=== PATIENT | male | born 1960 | race Caucasian/White ===

== ENCOUNTER 2016-05-10 12:43 | Day surgery (SDC) | payer BC ==
[~2016-05-10] VITALS: Ht 177.8 cm; Wt 127.3 kg
[~2016-05-10 12:43] MED LIST: ATIVAN1 MG PO; CELEXA40 MG PO; CIPRO500 MG PO; LEVAQUIN750 MG PO; NORCO 5/325 TAB1 TA1 PO; NORVASC10 MG PO; PLAVIX75 MG PO; PRINIVIL20 MG PO; ROBAXIN-750750 MG; XARELTO10 MG PO
[2016-05-10 13:32] LABS: HEMATOCRIT 52.5 % (42.0-54.0); HEMOGLOBIN 18.4 g/dL (13.5-17.5); MCH 31.6 pg (26.0-34.0); MCV 90.1 fL (80.0-100.0); MEAN PLATELET VOLUME 11.2 fL (7.4-10.4); RBC 5.83 10x6/uL (4.20-6.10); RDW 12.8 % (11.5-14.5); WBC 12.6 10x3/uL (4.8-10.8)
[2016-05-10] MEDS ORDERED: GLUCOPHAGE1000 MG PO (13:36)
[2016-05-10 13:37] VITALS: BP 146/79; Ht 177.8 cm; Wt 127.3 kg
--- NOTE | 2016-05-10 15:21 | NUR ---
1510 UP TO THE BR WITH ASSISTANCE VOIDED AND PASSED AIR.
--- NOTE | 2016-05-10 15:21 | NUR ---
1500 BACK FROM GI LAB. RESP EVEN AND NONLABORED. PASSED AIR. SAT 95%. PASSED AIR.
--- NOTE | 2016-05-10 15:25 | NUR ---
1515 CALLED LAB TO ADD CEA ALREADY HAD BLOOD DRAWN.
--- NOTE | 2016-05-10 17:44 | NUR ---
1545 VERIFIED WITH LAMAR IN LAB, LAB SENT OUT OFF LAB ALREADY GOTTEN. PASSED AIR DR YAÑEZ ALREADY ROUNDED.
--- NOTE | 2016-05-10 17:46 | NUR ---
1610 TO HOME VIA W/C WITH FIANCE DRIVING.
--- NOTE | 2016-05-10 17:46 | NUR ---
1600 IV DCD CATHETER INTACT WENT OVER DISCHARGE INSTRUCTIONS, AND VERBALLY UNDERSTANDS.
--- NOTE | 2016-05-14 17:02 | OP ---
PATIENT NAME: GABRIELA AGUIRRE MEDICAL RECORD: [id number] :64 LOCATION:D.OPS ADMISSION DATE: SURGEON: DANN YAÑEZ MD DATE OF OPERATION: 05/10/2016 REFERRING PHYSICIAN: Dayami Newman MD. INDICATIONS: Mr. Aguirre is a pleasant 56-year-old gentleman, who had a hospitalization for right lower quadrant pain, 01/03/2016. CT scan on 01/04/2016 showed bilateral nonobstructive renal calculi, renal cyst, no acute intra-abdominal findings. Stool studies were negative. He was treated with antibiotic therapy and then discharged. He has had no recurrence of his abdominal pain nor has he had any nausea, vomiting, melena or hematochezia. Labs from 01/05/2016 showed an elevated CEA level at 6.9, a CRP of 1.1. Liver function tests and CBC were unremarkable. He had colon surgery in 2012 secondary to perforated diverticulum. He presents for outpatient colonoscopy. PREMEDICATIONS: Total IV anesthesia (factor V Leiden), propofol 350 mg. INSTRUMENT: Olympus video colonoscope. PROCEDURE AND FINDINGS: After receiving informed consent, Mr. Aguirre was placed in left lateral decubitus position and sedated as per anesthesia. After achieving an adequate level of sedation, digital rectal exam was performed that showed no external hemorrhoidal tags, fissures or fistulas. Normal sphincter tone. No palpable rectal masses. The prostate was slightly enlarged, firm without palpable nodules. Colonoscope was introduced per rectally and advanced to the cecal small bowel anastomosis. Surgical changes were consistent with a partial right hemicolectomy. The appendiceal orifice was identified. As the colonoscope was withdrawn, careful inspection was made of the michel of the colon. Overall mucosa had normal vascular and fold pattern. In the proximal transverse colon, was a 0.75 cm sessile polyp removed with hot biopsy forcep technique. In the mid transverse colon was at 1.5-2 cm sessile polyp removed with hot biopsy forceps technique. Multiple diverticula were seen scattered throughout the sigmoid colon. In the distal rectum, there were 2 polyps measuring 0.3 cm in size, sessile, removed with hot biopsy forceps technique and on retroflexion, mild to moderate internal hemorrhoids were noted. A fair to good prep was present. Withdrawal time was 13 minutes. Mr. Tunnicliff tolerated the procedure well, no immediate complications. ASSESSMENT: 1. Status post right hemicolectomy for perforated diverticulum in 2013 with identification of small bowel, cecal anastomosis. 2. Paroxysmal transverse colon polyp, status post polypectomy. 3. Mid transverse colon polyp, status post polypectomy. 4. Distal rectal polyps times 2, status post polypectomy. 5. Moderate sigmoid diverticulosis coli. 6. Internal hemorrhoids. RECOMMENDATIONS: 1. Follow up histopathology. 2. Avoid aspirin, nonsteroidal anti-inflammatory drugs and RANDHAWA-2 inhibitors for 14 days post polypectomy. 3. Resume Xarelto tomorrow. 4. Surveillance colonoscopy pending nature of polyp histopathology. OPERATIVE REPORT [id number] GABRIELA AGUIRRE 5. Repeat CEA level. TRANSINT:[id number] Voice Confirmation ID: [id number] DOCUMENT ID: [id number] DANN YAÑEZ MD at 1702 CC: DAYAMI NEWMAN MD [id number] DICTATION DATE: 05/10/16 1457 SLAG EXPANDER: 05/10/161926 [facility] 05/10/16 [facility] [address] [place] [address]
== END 2016-05-10 16:10 | disposition home or self-care (01) ==
LOC: D.OPS 12:43
PROVIDERS: Anesthesiology
DX: K63.89 Other specified diseases of intestine (principal); Z90.49 Acquired absence of other specified parts of digestive tract; K63.5 Polyp of colon; K62.1 Rectal polyp; K64.8 Other hemorrhoids; K57.30 Diverticulosis of large intestine without perforation or abscess without bleeding

== ENCOUNTER → 2016-05-17 15:56 | Outpatient (CLI) | payer BC ==
[2016-05-10 13:37] VITALS: BMI 40.2
[~2016-05-17 15:56] MED LIST changes: +FLAGYL500 MG PO; +GLUCOPHAGE1000 MG PO; +ZANAFLEX4 MG PO
== END | disposition home or self-care (01) ==
LOC: D.CT 15:56
DX: R97.0 Elevated carcinoembryonic antigen [CEA] (principal); F17.200 Nicotine dependence, unspecified, uncomplicated

== ENCOUNTER 2016-06-11 14:47 | Observation (INO) | payer BC ==
[~2016-06-11] VITALS: Ht 177.8 cm; Wt 121.6 kg
[~2016-06-11 14:47] MED LIST changes: -FLAGYL500 MG PO; -ZANAFLEX4 MG PO
[2016-06-11] MEDS ORDERED: ZANAFLEX4 MG PO (15:26)
[2016-06-11 15:35] VITALS: BP 157/80; Ht 177.8 cm; Wt 121.6 kg
--- NOTE | 2016-06-11 16:00 | NUR ---
PATIENT ADMITTED FROM CLINIC. ADMISSION ASSESSMENT, HISTORY AND MED REC DONE. NPO FOR CT SCAN. IV STARTED ON 1ST ATTEMPT WITH 20 GA 1 INCH IN R HAND. PATIENT IS VERY HARD OF HEARING. MONITOR SHOWS SR @ 87. WILL CONTINUE TO MONITOR.
--- NOTE | 2016-06-11 16:18 | NUR ---
CONTINUING CARE OF PT. PT SITTING UP IN BED DENIES NEEDS WILL CONT TO MONITOR.
[2016-06-11 16:45] LABS: CREATININE - SERUM 0.6 mg/dL (0.6-1.3)
--- NOTE | 2016-06-11 17:18 | NUR ---
INITIATED DILAUDID PLATFORM LOADER. PRIMED TUBING WITH 1.8 CC MEDICATION. PT INSTRUCTED ON HOW TO USE PLATFORM LOADER PUMP. WORKING PROPERLY. .2MG EVERY 20 MINUTES WITH A 4MG 4 HOUR LOCKOUT PER EMAR.
--- NOTE | 2016-06-11 18:03 | NUR ---
PT BACK FROM CT DENIES NEEDS
[2016-06-11 18:12] VITALS: BP 157/80
--- NOTE | 2016-06-11 19:02 | NUR ---
PT SITTING UP IN BED GIVEN MOUTH SWABS DENIES OTHER NEEDS
--- NOTE | 2016-06-11 19:38 | NUR ---
ASSESSMENT COMPLETE, A&O, IV TO RIGHT HAND WITH NS INFUSING AT 100 CC/HR AND DILAUDID FACILITY SECURITY OFFICER IN USE FOR PAIN CONTROL. ASSISTED PT WITH PUTTING SHORTS ON, NO OTHER NEEDS AT THIS TIME, WILL CONT TO MONITOR.
[2016-06-11 20:00] VITALS: BP 101/66
--- NOTE | 2016-06-11 20:10 | NUR ---
UP WALKING AROUND NURSES UNIT, GAIT STEADY.
--- NOTE | 2016-06-11 22:50 | NUR ---
ANSWERED CL, PT STATES THAT HE IS HAVING A HARD TIME SLEEPING AND WANTS TO GO FOR A WALK, DISCONNECTED IV. PT AMBULATING IN [place], GAIT STEADY.
[2016-06-12] VITALS: BP 100/52
--- NOTE | 2016-06-12 00:39 | NUR ---
MONITORING ENGINEER AT BEDSIDE FOR VS, NEEDS ADDRESSED. CALL LIGHT IN REACH. WILL CONT TO MONITOR.
--- NOTE | 2016-06-12 02:35 | NUR ---
RESTING WITH EYES CLOSED, RESPERATIONS EVEN, NO S/S DISTRESS NOTED.
[2016-06-12 04:00] VITALS: BP 154/79
--- NOTE | 2016-06-12 05:00 | NUR ---
PT WENT FOR A WALK DOWN THE [place], UPON RETURNING TO HIS ROOM PT STOPPED AT NURSES STATION AND STATED THAT HE HAD THROWN UP OUT SIDE. PT ASKING FOR CUP OF COFFEE TO GET TASTE OUT OF HIS MOUTH, INFORMED PT THAT HE IS NPO AND I CANT GIVE HIM ANY THING TO DRINK UNTIL WE TALK THE DOCTOR.
--- NOTE | 2016-06-12 06:30 | NUR ---
PT AMBULATING IN [place], STOPS AT NURSES STATION AND STATES THAT HE HAD JUST THROW UP AGAIN. INOFRMED PT THAT HE PROBABLY NEEDS TO STAY IN HIS ROOM SINCE THIS IS THE SECOND TIME THAT HE HAS GONE OUT SIDE AND THROWN UP.
--- NOTE | 2016-06-12 07:50 | NUR ---
0730-NPO STATUS, PATIENT WANTING TO SLEEP, PLACED HIMSELF ON HIS OWN CPAP. IV OF NS INFUSING TO RIGHT HAND ALONG WITH REPACKER DILAUDID WITHOUT PROBLEMS. ON HEART MONITOR SHOWING SR, HR 60. WILL CONTINUE TO MONITOR.
--- NOTE | 2016-06-12 08:23 | CN ---
PATIENT NAME:GABRIELA AGUIRRE MEDICAL RECORD: [id number] : 64 LOCATION:D. D.2128 ADMIT DATE: 06/11/16 ACCOUNT: [id number] CONSULTING PHYSICIAN: JOCY BENNETT MD REFERRING PHYSICIAN: IAN NEWMAN MD DATE OF CONSULTATION: 06/11/2016 Surgical Consultation CONSULTING PHYSICIAN: Jocy Bennett MD (JJ) CHIEF COMPLAINT: Right lower quadrant pain. HISTORY OF PRESENT ILLNESS: Mr. Aguirre is a 56-year-old male who was admitted to the hospital with recurrent right lower quadrant pain that started several days ago. He was admitted approximately 4-5 months ago for similar symptoms ____ any significant pathology. He was scheduled to have an outpatient colonoscopy after that admission. He has not had a colonoscopy at this time. His last colonoscopy was greater than 10 years ago. The pain is sharp and stabbing in nature. It sort of migrates to the right lower quadrant. He has a history of a previous right hemicolectomy. He was tolerating a diet at home. He is having regular bowel movements. No melena or hematochezia. No fever or chills. No dysuria. PAST MEDICAL HISTORY: Deafness, requiring hearing aids; hypertension. PREVIOUS OPERATIONS: Cholecystectomy, appendectomy, varicose vein surgery, right hemicolectomy. MEDICATIONS: Lisinopril, amlodipine, lorazepam, citalopram, [place], Xarelto. FAMILY HISTORY: Cardiovascular disease and cancer in his parents. SOCIAL HISTORY: He is a current everyday smoker. REVIEW OF SYSTEMS: A 12-point review of systems was obtained, pertinent positive and negative as per the HPI. PHYSICAL EXAMINATION: VITAL SIGNS: Temperature 98.8, pulse 94, respirations 18, blood pressure 157/80, satting 95% on room air. GENERAL: Well-developed, well-nourished, obese male in mild distress. PSYCHIATRIC: He is alert and oriented times 3. EYES: Extraocular muscles are intact. EARS, NOSE AND THROAT: He has normal dentition. He does have tympanic devices in place in left ear. CARDIOVASCULAR: Normal sinus rhythm. PULMONARY: He has decreased breath sounds bilaterally ____ wheezing. ABDOMEN: Soft. He has got voluntary guarding in the right lower quadrant. No rebound tenderness. No masses. No hernia defects. No skin changes. He is moderately tender to palpation in the right lower quadrant. SKIN: Warm and dry with normal turgor. EXTREMITIES: He is neurovascularly intact. No peripheral edema. NEUROLOGIC: His GCS is 15, no focal deficits. CONSULT REPORT [id number] GABRIELA AGUIRRE LABORATORY DATA: Show a normal BUN and creatinine. IMAGING: CT abdomen and pelvis was reviewed as well as his previous CT scan done several months ago, which again shows no identifiable pathology in the right lower quadrant. No change from previous CT. IMPRESSION: A 56-year-old male with recurrent right lower quadrant pain. PLAN: 1. IV fluid resuscitation. 2. IV narcotics for pain control. 3. IV antiemetics. 4. Recommend repeat gastroenterology consult as they also strongly recommended a colonoscopy at his last admission. If unable to get colonoscopy, recommended barium enema. We will follow serial abdominal exams. 5. No surgical intervention at this time. TRANSINT:[id number] Voice Confirmation ID: [id number] DOCUMENT ID: [id number] JOCY BENNETT MD at 0823 CC: [id number] DICTATION DATE: 06/11/16 2143 MESS COOK: 06/12/16 0013 ADM IN [facility] [address] [place] [address]
[2016-06-12 08:27] VITALS: BP 121/67
--- NOTE | 2016-06-12 09:40 | NUR ---
PATIENT WANTING TO "GO WALK AROUND AND BE UN-HOOKED". I TOLD HIM THAT HE COULD BUT HE HAD TO STAY ON THE UNIT. HE ASKED WHY, I INFORMED HIM THAT HE HAD A NICOTINE PATCH ON, THIS WAS A NO SMOKING FACILTIY, HE HAD A METAL TANK ERECTOR PAIN PUMP, AND ON A HEART MONITOR. HE ASKED WHEN THE DOCTOR WAS GOING TO COME BY, I TOLD HIM THAT IF THEY DID AND HE WAS OFF THE FLOOR I DID NOT KNOW WHEN THEY WOULD COME BACK. HE DECIDED TO STAY IN HIS ROOM. HE QUESTIONED HIS CT FROM YESTEREDAY, I SHOWED HIM THE REPORT AND ANSWERED HIS QUESTIONS REGARDING IT. WILL CONTINUE TO MONITOR.
[2016-06-12 11:48] LABS: BASOPHILS 0.1 % (0.0-2.0); EOSINOPHILS 1.1 % (0-7); HEMATOCRIT 48.7 % (42.0-54.0); HEMOGLOBIN 16.8 g/dL (13.5-17.5); IMMATURE GRANULOCYTES 0.2 % (0-5); LYMPHOCYTES 17.9 % (15-50); MCHC 34.5 g/dL (31.0-37.0); MCV 89.9 fL (80.0-100.0); MEAN PLATELET VOLUME 11.1 fL (7.4-10.4); MONOCYTES 6.4 % (2-11); NEUTROPHILS 74.3 % (40-80); PLATELET COUNT 141 10x3/uL (130-400); RBC 5.42 10x6/uL (4.20-6.10); WBC 10.5 10x3/uL (4.8-10.8)
[2016-06-12 12:02] VITALS: BP 154/85
[2016-06-12 12:15] LABS: ALBUMIN 3.6 g/dL (3.4-5.0); ALKALINE PHOSPHATASE 105 U/L (46-116); ALT (SGPT) 67 U/L (10-68); AMYLASE - SERUM 57 U/L (25-115); BILIRUBIN - TOTAL 0.44 mg/dL (0.2-1.3); CALC OSMOLALITY 280 mosm/kg (275-300); CALCIUM 8.2 mg/dL (8.5-10.1); CARBON DIOXIDE 29.4 mmol/L (21.0-32.0); CHLORIDE - SERUM 102 mmol/L (98-107); CREATININE - SERUM 0.6 mg/dL (0.6-1.3); GLUCOSE 113 mg/dL (74-106); LIPASE 248 U/L (73-393); POTASSIUM - SERUM 3.9 mmol/L (3.5-5.1); PROTEIN - SERUM 7.3 g/dL (6.4-8.2); SODIUM 140 mmol/L (136-145); UREA NITROGEN 16 mg/dL (7-18); eGFR NON AFRICAN AMERICAN > 90 mL/min (90-120)
[2016-06-12] MEDS ORDERED: LEVAQUIN750 MG PO (13:20)
[2016-06-12] MEDS ORDERED: FLAGYL500 MG PO (13:21)
--- NOTE | 2016-06-12 13:55 | NUR ---
TEAM OTR TRUCK DRIVER AND IV ARE D/C PATIENT IS BEING DISCHARGED.
--- NOTE | 2016-06-12 15:10 | NUR ---
Patient Name: GABRIELA AGUIRRE Admission Status: Urgent Accout number: [id number] Admission Date: 06-11-2016 : 1960 Admission Diagnosis: Attending: MARCO A Current LOS: 1 Anticipated DC Date: 06-12-2016 Planned Disposition: Home Primary Insurance: [employer] O Discharge Planning Comments: * Is the patient Alert and Oriented? Yes 0 * How many steps to enter\exit or inside your home? 2 0 * PCP DR. NEWMAN 0 * Pharmacy [facility] IN [place] 0 * Preadmission Environment Home with Family 0 * ADLs Independent 0 * Equipment BIPAP Cane 0 * Other Equipment [facility] PATIENT - MEDICAL EQUIPMENT PROVIDER 0 * List name and contact numbers for known caregivers / representatives who currently or will assist patient after discharge: KINGSLEY KAPLAN, SPOUSE, 0 * Community resources currently utilized None 0 * Please name any agencies selected above. NONE 0 * Additional services required to return to the preadmission environment? No 0 * Can the patient safely return to the preadmission environment? Yes 0 * Has this patient been hospitalized within the prior 30 days at any hospital? No 0 CM MET WITH PT IN ROOM TO DISCUSS DISCHARGE PLANNING AND NEEDS. PT REPORTS LIVING AT HOME INDEPENDENTLY WITH HIS . PT HAS BIPAP AND CANE PROVIDER IS [facility] PATIENT. PT HAS NO OUTSIDE SERVICES ASSISTING IN THE HOME. CM DISCUSSED AVAILABILITY OF HOME HEALTH, REHAB SERVICES AND MEDICAL EQUIPMENT. PT DENIES DISCHARGE NEEDS, REPORTS HIS IS HERE TO TAKE HIM HOME AT DISCHARGE TODAY. Manufacturing Operations Manager: Lul Clay
--- NOTE | 2016-06-12 15:10 | NUR ---
I WAS TAKING A PATIENT DOWNSTAIRS FOR DISCHARGE, I PASSED THE PATIENT COMING FROM THE OLD ER AREA SMELLING OF SMOKE.
--- NOTE | 2016-06-12 16:22 | NUR ---
VERBAL AND WRITTEN DISCHARGE INSTRUCTIONS GIVEN TO PATIENT. SALINE LOCK REMOVED WITH CATH TIP INTACT. DISCHARGED HOME VIA WHEELCHAIR.
== END 2016-06-12 16:26 | disposition home or self-care (01) ==
LOC: D.M2 14:47 → D.SDCHOLD 14:47 → D.M2 14:47 → OBSVTIME 14:47 → D.M2 15:02
PROVIDERS: Family Medicine Adult Medicine; ADMIT Emergency Medicine
DX: R10.31 Right lower quadrant pain (principal); I10 Essential (primary) hypertension; Z72.0 Tobacco use

== ENCOUNTER 2017-05-17 17:19 | Emergency (ER) | payer BC ==
[2016-06-11 15:35] VITALS: BMI 38.8
[~2017-05-17 17:19] MED LIST changes: +FLAGYL500 MG PO; +ZANAFLEX4 MG PO
[2017-05-17 18:04] LABS: APPEARANCE HAZY (CLEAR); BILIRUBIN NEGATIVE (NEGATIVE); COLOR YELLOW (YELLOW); GLUCOSE NEGATIVE (NEGATIVE); KETONE NEGATIVE (NEGATIVE); NITRITE NEGATIVE (NEGATIVE); PROTEIN 2+ mg/dL (NEGATIVE); UROBILINOGEN NORMAL (NORMAL)
[2017-05-17 18:07] LABS: BACTERIA FEW /hpf (NONE SEEN); EPITHELIAL CELLS OCC /hpf (0-5); GRANULAR CAST OCC /lpf (NONE SEEN); HYALINE CAST RARE /lpf (NONE SEEN); WHITE CELLS - URINE OCC /hpf (0-5)
[2017-05-17 19:12] LABS: ALBUMIN 3.8 g/dL (3.4-5.0); ALKALINE PHOSPHATASE 104 U/L (46-116); ALT (SGPT) 36 U/L (10-68); BILIRUBIN - TOTAL 0.37 mg/dL (0.2-1.3); CALC OSMOLALITY 280 mosm/kg (275-300); CALCIUM 8.9 mg/dL (8.5-10.1); CARBON DIOXIDE 30.1 mmol/L (21.0-32.0); CHLORIDE - SERUM 101 mmol/L (98-107); CREATININE - SERUM 0.8 mg/dL (0.6-1.3); GLUCOSE 106 mg/dL (74-106); POTASSIUM - SERUM 3.9 mmol/L (3.5-5.1); PROTEIN - SERUM 7.5 g/dL (6.4-8.2); SODIUM 139 mmol/L (136-145); UREA NITROGEN 21 mg/dL (7-18); eGFR NON AFRICAN AMERICAN > 90 mL/min (90-120)
[2017-05-17 19:22] LABS: HEMATOCRIT 48.6 % (42.0-54.0); HEMOGLOBIN 16.9 g/dL (13.5-17.5); LYMPHOCYTES 16.8 % (15-50); MCH 30.6 pg (26.0-34.0); MCHC 34.8 g/dL (31.0-37.0); MCV 87.9 fL (80.0-100.0); MEAN PLATELET VOLUME 10.3 fL (7.4-10.4); NEUTROPHILS 75.7 % (40-80); RBC 5.53 10x6/uL (4.20-6.10); RDW 12.8 % (11.5-14.5); WBC 13.3 10x3/uL (4.8-10.8)
[2017-05-17 19:23] LABS: PLATELET COUNT 173 10x3/uL (130-400)
== END 2017-05-17 20:35 | disposition home or self-care (01) ==
LOC: D.ER 17:19
PROVIDERS: Emergency Medicine
DX: S80.12XA Contusion of left lower leg, initial encounter (principal); S30.0XXA Contusion of lower back and pelvis, initial encounter; V03.90XA Pedestrian on foot injured in collision with car, pick-up truck or van, unspecified whether traffic or nontraffic accident, initial encounter; Y93.01 Activity, walking, marching and hiking; Y92.410 Unspecified street and highway as the place of occurrence of the external cause; S39.012A Strain of muscle, fascia and tendon of lower back, initial encounter; S29.012A Strain of muscle and tendon of back wall of thorax, initial encounter; I10 Essential (primary) hypertension; F17.200 Nicotine dependence, unspecified, uncomplicated

== ENCOUNTER 2017-11-21 08:03 | Inpatient (IN) | payer BC ==
[~2017-11-21] VITALS: Ht 177.8 cm; Wt 118.2 kg
[2017-11-21 09:12] LABS: ALBUMIN 3.6 g/dL (3.4-5.0); ALKALINE PHOSPHATASE 98 U/L (46-116); ALT (SGPT) 47 U/L (10-68); AMYLASE - SERUM 44 U/L (25-115); BILIRUBIN - TOTAL 0.69 mg/dL (0.2-1.3); CALC OSMOLALITY 285 mosm/kg (275-300); CALCIUM 8.6 mg/dL (8.5-10.1); CARBON DIOXIDE 26.8 mmol/L (21.0-32.0); CHLORIDE - SERUM 103 mmol/L (98-107); CREATININE - SERUM 0.8 mg/dL (0.6-1.3); GLUCOSE 169 mg/dL (74-106); LIPASE 110 U/L (73-393); POTASSIUM - SERUM 4.1 mmol/L (3.5-5.1); PROTEIN - SERUM 6.7 g/dL (6.4-8.2); SODIUM 139 mmol/L (136-145); UREA NITROGEN 23 mg/dL (7-18); eGFR NON AFRICAN AMERICAN > 90 mL/min (90-120)
[2017-11-21 09:13] LABS: BASOPHILS 0.2 % (0-2); EOSINOPHILS 2.7 % (0-7); HEMATOCRIT 45.2 % (42.0-54.0); HEMOGLOBIN 15.7 g/dL (13.5-17.5); IMMATURE GRANULOCYTES 0.2 % (0-5); LYMPHOCYTES 4.1 % (15-50); MCH 31.3 pg (26.0-34.0); MCHC 34.7 g/dL (31.0-37.0); MCV 90.2 fL (80.0-100.0); MONOCYTES 7.6 % (2-11); NEUTROPHILS 85.2 % (40-80); RBC 5.01 10x6/uL (4.20-6.10); RDW 13.3 % (11.5-14.5); WBC 11.9 10x3/uL (4.8-10.8)
[2017-11-21 09:25] LABS: PLATELET COUNT 132 10x3/uL (130-400)
[2017-11-21 09:44] LABS: APPEARANCE CLEAR (CLEAR); BILIRUBIN NEGATIVE (NEGATIVE); COLOR YELLOW (YELLOW); GLUCOSE NEGATIVE (NEGATIVE); KETONE NEGATIVE (NEGATIVE); NITRITE NEGATIVE (NEGATIVE); PROTEIN 1+ mg/dL (NEGATIVE); SPECIFIC GRAVITY 1.015 (1.005-1.020); UROBILINOGEN NORMAL (NORMAL)
[2017-11-21 09:45] LABS: BACTERIA FEW /hpf (NONE SEEN); EPITHELIAL CELLS 0-5 /hpf (0-5); MUCUS <1+ /lpf (NONE SEEN); RED CELLS - URINE 0-5 /hpf (0-5); WHITE CELLS - URINE RARE /hpf (0-5)
[2017-11-21 20:00] VITALS: BP 129/78
[2017-11-22] VITALS: BP 120/70
[2017-11-22 05:45] LABS: BASOPHILS 0.1 % (0-2); EOSINOPHILS 2.8 % (0-7); HEMATOCRIT 41.6 % (42.0-54.0); HEMOGLOBIN 14.4 g/dL (13.5-17.5); IMMATURE GRANULOCYTES 0.1 % (0-5); LYMPHOCYTES 10.4 % (15-50); MCH 31.3 pg (26.0-34.0); MCHC 34.6 g/dL (31.0-37.0); MCV 90.4 fL (80.0-100.0); MEAN PLATELET VOLUME 11.3 fL (7.4-10.4); MONOCYTES 11.8 % (2-11); NEUTROPHILS 74.8 % (40-80); PLATELET COUNT 122 10x3/uL (130-400); RDW 13.1 % (11.5-14.5)
[2017-11-22 05:48] LABS: WBC 8.2 10x3/uL (4.8-10.8)
[2017-11-22 06:04] LABS: ALBUMIN 2.9 g/dL (3.4-5.0); ALKALINE PHOSPHATASE 106 U/L (46-116); ALT (SGPT) 58 U/L (10-68); CALCIUM 7.8 mg/dL (8.5-10.1); CARBON DIOXIDE 25.1 mmol/L (21.0-32.0); CHLORIDE - SERUM 101 mmol/L (98-107); CREATININE - SERUM 0.8 mg/dL (0.6-1.3); POTASSIUM - SERUM 3.9 mmol/L (3.5-5.1); PROTEIN - SERUM 5.9 g/dL (6.4-8.2); SODIUM 136 mmol/L (136-145); eGFR NON AFRICAN AMERICAN > 90 mL/min (90-120)
[2017-11-22 06:07] LABS: CALC OSMOLALITY 273 mosm/kg (275-300); GLUCOSE 112 mg/dL (74-106); UREA NITROGEN 16 mg/dL (7-18)
[2017-11-22 08:30] VITALS: BP 120/77
[2017-11-22 12:57] VITALS: BP 134/71
[2017-11-22 16:32] VITALS: BP 136/75
[2017-11-22 20:00] VITALS: BP 128/67
[2017-11-23] VITALS: BP 162/84
[2017-11-23 04:00] VITALS: BP 154/73
[2017-11-23 06:20] VITALS: BP 128/70; Ht 177.8 cm; Wt 118.2 kg
[2017-11-23 07:47] LABS: BASOPHILS 0.1 % (0-2); EOSINOPHILS 3.1 % (0-7); HEMATOCRIT 42.6 % (42.0-54.0); HEMOGLOBIN 14.8 g/dL (13.5-17.5); IMMATURE GRANULOCYTES 0.3 % (0-5); LYMPHOCYTES 14.6 % (15-50); MCH 30.8 pg (26.0-34.0); MCHC 34.7 g/dL (31.0-37.0); MCV 88.6 fL (80.0-100.0); MEAN PLATELET VOLUME 10.3 fL (7.4-10.4); MONOCYTES 9.4 % (2-11); NEUTROPHILS 72.5 % (40-80); PLATELET COUNT 110 10x3/uL (130-400); RBC 4.81 10x6/uL (4.20-6.10); RDW 12.9 % (11.5-14.5); WBC 7.3 10x3/uL (4.8-10.8)
[2017-11-23 07:56] LABS: CALC OSMOLALITY 278 mosm/kg (275-300); CALCIUM 8.1 mg/dL (8.5-10.1); CARBON DIOXIDE 26.6 mmol/L (21.0-32.0); CHLORIDE - SERUM 105 mmol/L (98-107); CREATININE - SERUM 0.7 mg/dL (0.6-1.3); GLUCOSE 198 mg/dL (74-106); POTASSIUM - SERUM 3.8 mmol/L (3.5-5.1); SODIUM 137 mmol/L (136-145); UREA NITROGEN 10 mg/dL (7-18); eGFR NON AFRICAN AMERICAN > 90 mL/min (90-120)
[2017-11-23 09:24] VITALS: BP 149/79
[2017-11-23] MEDS ORDERED: LEVAQUIN750 MG PO (13:49)
[2017-11-23] MEDS ORDERED: FLAGYL500 MG PO (13:49)
== END 2017-11-23 14:58 | disposition home or self-care (01) | DRG 392 ==
LOC: D.ER 08:03 → D.MS 12:32 → D.EDHOLD 12:32 → D.MS 12:46
PROVIDERS: Family Medicine; Internal Medicine Nephrology
DX: K57.32 Diverticulitis of large intestine without perforation or abscess without bleeding (principal); E11.9 Type 2 diabetes mellitus without complications; Z79.84 Long term (current) use of oral hypoglycemic drugs; I10 Essential (primary) hypertension; F32.9 Major depressive disorder, single episode, unspecified; E66.9 Obesity, unspecified; Z68.37 Body mass index [BMI] 37.0-37.9, adult; I73.9 Peripheral vascular disease, unspecified; G47.33 Obstructive sleep apnea (adult) (pediatric); H91.93 Unspecified hearing loss, bilateral

== ENCOUNTER 2019-01-01 07:13 | Day surgery (SDC) | payer BC ==
[2018-12-31 09:42] LABS: HEMOGLOBIN 15.5 g/dL (13.5-17.5); MCH 31.3 pg (26.0-34.0); MCV 86.9 fL (80.0-100.0); MEAN PLATELET VOLUME 10.6 fL (7.4-10.4); RBC 4.95 10x6/uL (4.20-6.10); RDW 12.9 % (11.5-14.5); WBC 10.6 10x3/uL (4.8-10.8)
[2018-12-31 09:45] LABS: CALC OSMOLALITY 282 mosm/kg (275-300); CALCIUM 8.5 mg/dL (8.5-10.1); CARBON DIOXIDE 26.8 mmol/L (21.0-32.0); CHLORIDE - SERUM 103 mmol/L (98-107); CREATININE - SERUM 0.8 mg/dL (0.6-1.3); GLUCOSE 175 mg/dL (74-106); POTASSIUM - SERUM 3.9 mmol/L (3.5-5.1); SODIUM 138 mmol/L (136-145); UREA NITROGEN 20 mg/dL (7-18); eGFR NON AFRICAN AMERICAN > 90 mL/min (90-120)
[~2019-01-01] VITALS: Ht 177.8 cm; Wt 118.2 kg
[~2019-01-01 07:13] MED LIST changes: +DICLOFENAC SODI50 MG PO; +LIPITOR10 MG PO
[2019-01-01 08:18] VITALS: BP 165/85; Ht 177.8 cm; Wt 118.2 kg
[2019-01-01] MEDS ORDERED: HYDROCODON-ACE1 EA10 PO (10:35)
--- NOTE | 2019-01-01 12:10 | NUR ---
RIGHT HAND PIV DC'D WITH TIP INTACT, DISCHARGE INSTRUCTIONS REVIEWED WITH PATIENT, PATIENT DRESSING IN PERSONAL CLOTHING, AMBULATING AROUND ROOM WITHOUT DIZZINESS OR UNSTEADINESS
--- NOTE | 2019-01-05 11:59 | OP ---
PATIENT NAME: GABRIELA AGUIRRE MEDICAL RECORD: [id number] :64 LOCATION:D.OPS ADMISSION DATE: SURGEON: JOCY YBARRA MD DATE OF OPERATION: 01/01/2019 PREOPERATIVE DIAGNOSIS: Painful left ring finger trigger finger. POSTOPERATIVE DIAGNOSIS: Painful left ring finger trigger finger. PROCEDURE: A1 andry trigger finger release of the left ring finger. SURGEON: Jocy Ybarra MD ANESTHESIA: General. INTRAOPERATIVE COMPLICATIONS: None. SUMMARY OF PATHOLOGIC FINDINGS: This is a very thickened fibrosed A1 andry with some attritional changes of the flexor mechanism; however, no full-thickness tearing was noted. OPERATIVE SUMMARY IN DETAIL: After obtaining the appropriate preoperative orthopedic surgery consent as well as anesthetic consultation, evaluation and clearance, the patient was brought to the operating room and placed on the operating table in supine position. After general laryngeal mask airway was administered, tourniquet was placed on the proximal aspect of the left upper extremity. Left upper extremity was then prepped in a routine sterile fashion. The arm was elevated and exsanguinated, tourniquet inflated to 250 mmHg. An incision was made directly over the A1 andry and this man has very large hands. Dissection was carried down to the A1 andry. Digital nerves were identified medially and laterally. They were retracted and then the A1 andry itself was identified. Incision of the A1 andry resulted in excellent excursion of the tendon. The tendon was examined and the findings as noted above were seen. The wound was irrigated and closed by Maggie FRANCISCO with 4-0 Prolene in routine interrupted fashion. The area was locally infiltrated with 0.25% Marcaine plain. Sterile dressings were applied. Tourniquet was deflated. The patient was awakened and taken to recovery room in stable condition. All final needle and sponge counts were correct. TRANSINT:[id number] Voice Confirmation ID: [id number] DOCUMENT ID: [id number] TATE POE, JOCY KING at 1159 CC: [id number] DICTATION DATE: 01/01/19 1649 FACULTY RESEARCH ASSISTANT: 01/02/19 0409 [facility] 01/01/19 [address] [place] [address]
== END 2019-01-01 12:40 | disposition home or self-care (01) ==
LOC: D.OPS 07:13
PROVIDERS: Anesthesiology; ATTEND Orthopaedic Surgery
DX: M65.342 Trigger finger, left ring finger (principal)

== ENCOUNTER 2019-08-20 06:33 | Day surgery (SDC) | payer BC ==
[~2019-08-20] VITALS: Ht 177.8 cm; Wt 122.5 kg
[~2019-08-20 06:33] MED LIST changes: +DIFLUCAN150 MG PO; +HYDROCODON-ACE1 EA10 PO; +JARDIANCE10 MG PO
[2019-08-20 06:54] LABS: HEMATOCRIT 50.3 % (42.0-54.0); HEMOGLOBIN 16.7 g/dL (13.5-17.5); MCH 30.1 pg (26.0-34.0); MCHC 33.2 g/dL (31.0-37.0); MCV 90.6 fL (80.0-100.0); MEAN PLATELET VOLUME 10.4 fL (7.4-10.4); RBC 5.55 10x6/uL (4.20-6.10); RDW 13.4 % (11.5-14.5)
[2019-08-20 07:11] LABS: CALC OSMOLALITY 278 mosm/kg (275-300); CALCIUM 8.8 mg/dL (8.5-10.1); CARBON DIOXIDE 24.2 mmol/L (21.0-32.0); CHLORIDE - SERUM 103 mmol/L (98-107); CREATININE - SERUM 0.7 mg/dL (0.6-1.3); GLUCOSE 157 mg/dL (74-106); SODIUM 137 mmol/L (136-145); UREA NITROGEN 19 mg/dL (7-18); eGFR NON AFRICAN AMERICAN > 90 mL/min (90-120)
[2019-08-20 07:59] VITALS: BP 133/63; Ht 177.8 cm; Wt 122.5 kg
--- NOTE | 2019-08-20 09:17 | NUR ---
VANCOMYCIN 1 GRAM IN 250CC OF NORMAL SALINE INFUSING ON ADMIT
--- NOTE | 2019-08-20 12:37 | NUR ---
1015 IV DC'D. CATHETER TIP INTACT. NO BLEEDING AT SITE. BANDAID APPLIED. REVIEWED DISCHARGE INSTRUCTIONS WITH PT WHO VOICES UNDERSTANDING OF INSTRUCTIONS.
--- NOTE | 2019-08-24 11:11 | OP ---
PATIENT NAME: GABRIELA AGUIRRE MEDICAL RECORD: [id number] :64 LOCATION:[facility] ADMISSION DATE: SURGEON: JOCY YBARRA MD DATE OF OPERATION: 08/20/2019 PREOPERATIVE DIAGNOSIS: Left long finger trigger finger. POSTOPERATIVE DIAGNOSIS: Left long finger trigger finger. PROCEDURE: Trigger finger release. SURGEON: Jocy Ybarra MD ANESTHESIA: LMA, general. INTRAOPERATIVE COMPLICATIONS: None. SUMMARY OF PATHOLOGIC FINDINGS: The patient had a tight A1 andry over the trigger finger, which was released nicely. Some excoriation of the flexor tendons was noted, but no tearing. OPERATIVE SUMMARY IN DETAIL: After obtaining the appropriate preoperative orthopedic surgery consent as well as anesthetic consultation, evaluation and clearance, the patient was brought to the operating room and placed on the operating table in a supine position. After adequate general laryngeal mask airway was administered, tourniquet was placed about the proximal aspect of the left upper extremity. Left upper extremity was prepped and draped in routine sterile fashion. The arm was elevated and exsanguinated, tourniquet inflated to 250 mmHg. The appropriate timeout was taken and agreed upon by all given the patient's unique identifiers. Incision was made at the A1 andry in line with the distal palmar crease. This incision was taken gently down to the level of the A1 andry, were the digital nerves were retracted. The A1 andry was then incised in its entirety. The tendon was inspected and found to be in good overall condition. The wound was irrigated and closed with 4-0 Prolene. The area was locally infiltrated with local 0.25% lidocaine plain. Sterile dressings were applied. The tourniquet was deflated. The patient was awakened and taken to recovery room in stable condition. All final needle and sponge counts were correct. TRANSINT:[id number] Voice Confirmation ID: [id number] DOCUMENT ID: [id number] TATE POE, JOCY KING at 1111 CC: [id number] DICTATION DATE: 08/20/19918 PUNCHBOARD STUFFER: 08/20/19 1532 [facility] 08/20/19 [id number] [place] [address]
== END 2019-08-20 10:32 | disposition home or self-care (01) ==
LOC: D.PAN 06:33 → D.OPS 10:00 → D.PAN 10:00
PROVIDERS: Anesthesiology; ATTEND Orthopaedic Surgery
DX: M65.332 Trigger finger, left middle finger (principal); E11.9 Type 2 diabetes mellitus without complications; Z79.84 Long term (current) use of oral hypoglycemic drugs

== ENCOUNTER → 2019-11-19 08:35 | Outpatient (CLI) | payer BC ==
[2019-08-20 07:59] VITALS: BMI 38.8
--- NOTE | ~2019-11-19 | EC ---
PATIENT:GABRIELA AGUIRRE DATE OF SERVICE: 11/19/19 SEX: M MEDICAL RECORD: [id number] DATE OF : 64 [facility] AGE OF PATIENT: 59 ADMISSION DATE: 11/19/19 REFERRING PHYSICIAN: INTERPRETING PHYSICIAN: DORINDA SINGH MD ECHOCARDIOGRAM REPORT ECHO CHARGES 4 ECHO COMPLETE Date: 11/19/19 CLINICAL DIAGNOSIS: HEART MURMUR ECHOCARDIOGRAPHIC MEASUREMENTS (adult normal given) AC root (d.<3.7cm) 3.3 cm LV Septum d (<1.2 cm> 1.4 cm Valve Excursion 1.8 cm LV Septum (systole) 1.6 cm Left Atria (s.<4.0cm> 3.8 cm LVPW d(<1.2cm) 1.4 cm RV (d.<2.3cm) 3.6 cm LVPW (sytole) 1.7 cm LV diastole(<5.6CM) 5.2 cm MV E-F(>70mm/sec) cm LV systole 3.5 cm LVOT Diameter 2.1 cm MV exc.(>10mm) 1.7 cm Est.ejection fraction (50-75%) % DOPPLER: LVIT cm/sec A 94.0 cm/sec E 72.0 cm/sec LA cm/sec RVSP 16 mmHg LVOT 136 cm/sec AOP1/2T m/s Asc. Ao 187 cm/sec RVOT 90 cm/sec RA cm/sec PA 143 cm/sec AV Gradient Peak 14.02mmHg AV Mean 7.23 mmHg AV Area 2.4 cm MV Gradient Peak 4.95 mmHg MV Mean 2.10 mmHg MV Area cm COMMENTS: Recyclable Materials Sorter: 2 JULIAN PLEITEZ Affiliate Manager: 3 Dr. Marshall TAPE# pacs Pericardial Effusion N DATE OF SERVICE: Adequate 2D, color flow imaging, spectral Doppler, and M-Mode. Mild LVH. LV internal dimensions are normal. Wall motion is normal. EF is greater than or equal to 55%. Aortic valve is tricuspid. No evidence of stenosis by Doppler interrogation. Left atrium is normal. Mitral valve shows no prolapse. Trace MR. Right-sided chambers are grossly normal. Trace TR. TRANSINT:[id number] Voice Confirmation ID: [id number] DOCUMENT ID: [id number] ECHOCARDIOGRAM REPORT [id number] GABRIELA AGUIRRE GREGORY A MD CC: [id number] DICTATION DATE: 11/23/19 1024 CHECK WRITER SALESPERSON: 11/23/192034 [facility] CLI 11/19/19 [address] [place] [address]
== END | disposition home or self-care (01) ==
LOC: D.HCCECHO 08:35
PROVIDERS: ATTEND Internal Medicine Cardiovascular Disease
DX: R01.1 Cardiac murmur, unspecified (principal); I20.9 Angina pectoris, unspecified

== ENCOUNTER 2019-12-01 12:09 | Day surgery (SDC) | payer BC ==
[~2019-12-01] VITALS: Ht 177.8 cm; Wt 112.5 kg
--- NOTE | ~2019-12-01 | HEMODYNAMI ---
PATIENT:GABRIELA AGUIRRE MEDICAL RECORD: [id number] : 64 LOCATION:DMILLICENT ADMISSION DATE: 12/01/19 Generatedon:12/01/201914:20 Patient name: GABRIELA AGUIRRE Patient #: [id number] SSN: [id number] : 1960 Date of study: 12/01/2019 Page: Of Hemodynamic Procedure Report Patient Data Patient Demographics Procedure consent was obtained First Name: GABRIELA Gender: Male Last Name: TIMOTHY : 1960 Middle Initial: WAYNE Age: 59 year(s) Patient #: [id number] Race: SSN: [id number] Additional ID: [id number] Contact details Address: [facility] [address] State: [place] City: [place] Zip code: [address] Admission Admission Data Admission Date: 12/01/2019 Admission Time: 12:09 Arrival Date: 12/01/2019 Arrival Time: 14:00 Admit Source: Other Insurance Payor: Private health insurance [facility] #: [id number] Height (in.): 69.69 BSA: 2.28 (m2) Height (cm.): 177 BMI: 35.75 (kg/m2) Weight (lbs.): 246.92 Weight (kg.): 112 Lab Results Lab Result Date: 12/01/2019 Lab Result Time: 0:00 Biochemistry Name Units Result Min Max BUN mg/dl 18 --(---*)-- 7 18 Creatinine mg/dl 0.9 --(-*--)-- 0.6 1.3 eGFR ml/min 90 --(*---)-- 90 120 NONAFRICAN CBC Name Units Result Min Max Hemoglobin g/dl 18 --(----)*- 13.5 17.5 Procedure Procedure Types Cath Procedure Diagnostic Procedure LHC LHC w/Coronaries Procedure Description Procedure Date Procedure Date: 12/01/2019 Procedure Start Time: 14:05 Procedure End Time: 14:14 Procedure Staff Name Function Celia Umaña RT Monitor Jia Rivas RN Nurse Jorje Hummel MD Performing Physician Aditi Webber RT Scrub Procedure Data Cath Procedure Fluoroscopy Diagnostic fluoroscopy Total fluoroscopy Time: 1.7 time: 1.7 min min Diagnostic fluoroscopy Total fluoroscopy dose: 536 dose: 536 mGy mGy Contrast Material Contrast Material Type Amount (ml) Isovue 300 42 Entry Location Entry Primary Successful Side Size Upsize Upsize Entry Closure [place]bot ccessful Closure Location (Fr) 1 (Fr) 2 (Fr) Remarks Device Remarks Radial Right 6 Fr Mechanical artery Short Compression Estimated blood loss: 5 ml Diagnostic catheters Device Type Used For End Catheter Placement DIAGNOSTIC [place] 110cm 5 Multi-vessel Fr catheter ([id number]) Angiography Procedure Complications No complications Procedure Medications Medication Administration Route Dosage Oxygen etCO2 Nasal cannula 2 l/min Lidocaine 2% added to field 20 Heparin Flush Bag added to field 2 bags (1000units/500ml NS) 0.9% NaCl I.V. 100 ml/hr Radial Cocktail I.A. 1 syringe (Verapamil 2mg/Nitro 400mcg/Heparin 1500units) Versed I.V. 2 mg Fentanyl I.V. 100 mcg Versed I.V. 2 mg Fentanyl I.V. 100 mcg Versed I.V. 2 mg Fentanyl I.V. 100 mcg Hemodynamics Rest HGB: 18 (g/dl) O2 Consumption: Estimated: 283.79 (ml/min) O2 Consumption indexed : Estimated:124.47 (ml/min/m) Heart Rate: 87 (bpm) Pressure Samples Time Site Value (mmHg) Purpose Heart Use Rate(bpm) 14:08 LV 94/14,16 Snapshot 45 14:08 LV 83/-19,15 Pullback 84 14:08 AO 72/45(61) Pullback 84 Gradients Valve Time Site 1 Site 2 Mean SEP/DFP Peak To Heart Use (mmHg) (sec/min) Peak Rate (mmHg) (bpm) Aortic 14:08 LV AO 8 11 11 84 83/-19,15 72/45(61) Calculations Valve P-P Mean Valve Index Valve Source Name Gradient Area Flow (cm2) Aortic 11 8 11 8 Snapshots Pre Cath Intra NCS Post Cath Vital Signs Time Heart Resp SPO2 etCO2 NIBP Rhythm Pain Sedation Rate (ipm) (%) (mmHg) (mmHg) Status Level (bpm) 14:01:01 89 15 93 23.9 115/66(86) NSR 0 (11) 10(A) , No pain 14:05:35 93 13 95 39.7 123/77(98) NSR 0 (11) 10(A) , No pain 14:10:34 92 10 94 39.7 Measuring NSR 0 (11) 9(A) , No pain 14:14:58 91 12 95 17.2 121/68(0) NSR 0 (11) 10(A) , No pain Medications Time Medication Route Dose Verified Delivered Reason Notes Effectiveness by by 14:00:01 Oxygen etCO2 2 l/min Jorje Ro used for Nasal St Javan Rivas RN procedure cannula 14:00:06 Lidocaine 2% added 20ml Jorje Recinos for local to vial [facility] anesthetic field MD POE 14:00:13 Heparin Flush added 2 bags Jorje Recinos used for Bag to [facility] procedure (1000units/500ml field MD POE NS) 14:00:21 0.9% NaCl I.V. 100 Jorje Ro Per ml/hr St Javan Rivas RN physician 14:02:13 Versed I.V. 2 mg Jorje Ro for sedation St Javan Rivas RN, MD 14:02:22 Fentanyl I.V. 100 mcg Jorje Ro for sedation St Javan Rivas RN, MD 14:05:41 Radial Cocktail I.A. 1 Jorje Recinos for (Verapamil syringe [facility] vasodilation 2mg/Nitro MD POE 400mcg/Hepari 14:06:46 Versed I.V. 2 mg Jorje Ro for sedation St Javan Rivas RN, MD 14:06:50 Fentanyl I.V. 100 mcg Jorje Ro for sedation St Javan Rivas RN, MD 14:11:32 Versed I.V. 2 mg Jorje Ro for sedation St Javan Rivas RN, MD 14:11:35 Fentanyl I.V. 100 mcg Jorje Ro for sedation St Javan Rivas RN, MD Procedure Log Time Note 13:28:12 Informed consent obtained and on chart 13:29:10 Arrival Date: 12/01/2019 2:00:00 PM 13:29:31 Admit Source: Other 13:29:33 Insurance Payor : Private health insurance 13:30:21 Patient Height : 69.69 inches 13:30:24 Patient Weight : 246.92 lbs 13::56 Lab Result : eGFR NONAFRICAN 90 ml/min 13::56 Lab Result : Hemoglobin 18 g/dl :: Lab Result : BUN 18 mg/dl ::56 Lab Result : Creatinine 0.9 mg/dl 13:31:00 Procedure Status Elective Heart Cath (OP). 13:31:07 Diagnostic Cath Status : Elective 13:31:28 Jia Rivas RN sent for patient. Start room use. ::29 Time tracking: Regular hours (M-F 7:00 - 5:00) 13:31:33 Plan of Care:Hemodynamics will remain stable., Cardiac rhythm will remain stable., Comfort level will be maintained., Respiratory function will remain adequate., Patient/ family verbilizes understanding of procedure., Procedure tolerated without complication., Recovers from procedure without complications.. 13:46:57 Patient received from Pre/Post Procedure Room to [facility] 2 Alert and oriented. Tansferred to table in Supine position. 13:46:58 Correct patient and procedure confirmed by team. 13:46:58 Warm blankets applied, and haily hugger turned on for patient comfort. 13:46:59 ECG and BP/O2 sat monitors applied to patient. 13:59:49 Vital chart was started 14:00:01 Oxygen 2 l/min etCO2 Nasal cannula was administered by Jia Rivas RN; used for procedure; Verbal order read back and verified. 14:00:06 Lidocaine 2% 20ml vial added to field was administered by Jorje Hummel MD; for local anesthetic; Verbal order read back and verified. 14:00:13 Heparin Flush Bag (1000units/500ml NS) 2 bags added to field was administered by Jorje Hummel MD; used for procedure; Verbal order read back and verified. 14:00:16 Baseline sample Acquired. 14:00:21 0.9% NaCl 100 ml/hr I.V. was administered by Jia Rivas RN; Per physician; Verbal order read back and verified. 14:00:24 Rhythm: sinus tachycardia 14:00:25 Full Disclosure recording started 14:00:29 H&P Date Dictated: 12/01/2019 Within 30 days and on chart., H&P Addendum completed by physician on day of procedure. (MUST COMPLETE FOR ALL OUTPATIENTS). 14:00:30 Pre-op teaching completed and patient verbalized understanding. 14:00:32 Pre-procedure instructions explained to patient. 14:00:35 Family in patients room. 14:00:36 Patient NPO since Midnight. 14:00:38 Is the patient allergic to Iodine/contrast media? No. 14:00:39 Was the patient premedicated? Yes 14:00:40 Is patient on blood thinner?Yes 14:01:07 patient states last dose of Xarelto on 11/29/2019 14:01:09 Patient diabetic? Yes. 14:01:11 If diabetic: On Metformin? Yes 14:01:15 If on Metformin: Last Dose? 11/29/2019 14:01:18 Previous problem with sedation/anesthesia? No ? 14:01:20 Snore? Yes 14:01:22 Sleep apnea? Yes 14:01:23 Deviated septum? No 14:01:24 Opens mouth fully? Yes 14:01:25 Sticks out tongue? Yes 14:01:26 Airway obstruction? No ? 14:01:29 Dentures? No ? 14:01:32 Pre procedure: right dorsailis pedis pulse 2+ Normal; easily identifiable; not easily obliterated 14:01:34 Pre procedure: left dorsailis pedis pulse 2+ Normal; easily identifiable; not easily obliterated 14:01:36 Patient pain scale 0/10 ?. 14:01:41 IV patent on arrival in left forearm with 0.9% NaCl at [facility]. 14:01:42 Lab results completed and on chart. 14:01:46 Right Radial & Right Groin area was prepped with chlora-prep and draped in sterile fashion 14:01:47 Alarms reviewed by R. N. 14:01:48 Sharps counted by scrub and verified by R.N. 14:01:49 Final Timeout: patient, procedure, and site verified with staff and physician. All members of the team are in agreement. 14::49 --------ALL STOP TIME OUT------ 14:01:49 Physician arrived 14:01:51 Right Radial & Right Groin site verified by team. 14:01:54 Fire Safety Assessment: A--An alcohol-based skin anteseptic being used preoperatively., C--Open oxygen or nitrous oxide is being used., D--An ESU, laser, or fiber-optic light is being used. 14:01:57 Physical assessment completed. ASA score P 2 - A patient with mild systemic disease as per Jorje Hummel MD. 14:02:10 1) 90+ Normal kidney functon but urine findings or structural abnormalities or genetic trait point to kidney disease. 14:02:13 Versed 2 mg I.V. was administered by Jia Rivas RN; for sedation; Verbal order read back and verified. 14:02:14 Maximum allowable contrast dose (3.7 X eGFR X 0.75)250 ml. 14:02:18 Sedation plan: IV Moderate Sedation Medication:Versed, Fentanyl 14:02:22 Fentanyl 100 mcg I.V. was administered by Jia Rivas RN; for sedation; Verbal order read back and verified. 14:05:19 Procedure started. 14:05:24 Local anesthetic to right radial artery with Lidocaine 2% by Jorje Hummel MD.INITIAL ACCESS ONLY 14:05:32 A 6 Fr Short sheath was inserted into the Right Radial artery 14:05:41 Radial Cocktail (Verapamil 2mg/Nitro 400mcg/Heparin 1500units) 1 syringe I.A. was administered by Jorje Hummel MD; for vasodilation; Verbal order read back and verified. 14:06:46 Versed 2 mg I.V. was administered by Jia Rivas RN; for sedation; Verbal order read back and verified. 14:06:50 Fentanyl 100 mcg I.V. was administered by Jia Rivas RN; for sedation; Verbal order read back and verified. 14:07:17 Use device set Radial Dx or PCI 14:07:18 ACIST Syringe (19449) opened to sterile field. 14:07:19 Bag Decanter () opened to sterile field. 14:07:19 Medline Cath Pack ([id number]) opened to sterile field. 14:07:20 ACIST Manifold (19083) opened to sterile field. 14:07:20 ACIST Hand Control (27834) opened to sterile field. 14:07:21 MBrace Wrist Support ([id number]) opened to sterile field. 14:07:21 Tegaderm 4 x 4 (1626W) opened to sterile field. 14:07:23 EMERALD Guide Wire (305-664) opened to sterile field. 14:07:24 SHEATH 6FR RAIN (5033246) opened to sterile field. 14:08:29 A DIAGNOSTIC [place] 110cm 5 Fr catheter (593451) was advanced over the wire and used for Multi-vessel Angiography. 14:08:40 LV hemodynamics recorded. 14:08:42 LV gram done using SINGLETARY 14:08:44 Injector settings: Ml/sec: 5, Volume: 15, 14:08:53 EF : 55 % 14:10:11 LCA angiography performed. 14:10:14 Injector settings: Ml/sec: 3, Volume: 6, 14:11:04 RCA angiography performed. 14:11:07 Injector settings: Ml/sec: 3, Volume: 6, 14:11:22 Catheter removed. 14:11:32 Versed 2 mg I.V. was administered by Jia Rivas RN; for sedation; Verbal order read back and verified. 14:11:35 Fentanyl 100 mcg I.V. was administered by Jia Rivas RN; for sedation; Verbal order read back and verified. 14:11:45 ZEPHYR LARGE TR BAND (935793) opened to sterile field. 14:11:53 Sheath removed intact; hemostasis achieved with Mechanical Compression to the Right Radial artery. 14:11:54 Procedure ended.(Physican Out) 14:12:34 Fluoroscopy time 01.70 minutes. 14:12:38 Fluoroscopy dose: 536 mGy 14:12:38 Flurop Dose total: 536 14:12:44 Dose Area Product 29647 mGy/cm. 14:12:48 Contrast amount:Isovue 300 42ml. 14:12:52 Maximum allowable dose exceeded? No. 14:12:53 Sharps counted by scrub and verified by R.N. 14:12:55 Pe Ell band inflated with 10cc of air. 14:13:06 Post-op/insertion site Right Femoral artery dressed using a 4 x 4 and Tegaderm. 14:13:09 Post procedure rhythm: unchanged. 14:13:11 Estimated blood loss: 5 ml 14:13:17 Post procedure instruction explained to patient.Patient verbalizes understanding. 14:13:18 Patient needs reinforcement of post procedure teaching. 14:14:08 Procedure and supply charges have been captured, reviewed, submitted and are correct. 14:14:13 Procedure Complication : No complications 14:14:15 Vital chart was stopped 14:14:23 [facility] Findings: mild to moderate CAD (<70%) 14:14:26 Operative report dictated upon procedure completion. 14:14:27 See physician's report for complete and final results. 14:14:31 Report given to Pre/Post Procedure Room. 14:14:34 Patient transfered to Pre/Post Procedure Room with Stretcher. 14:14:36 Full Disclosure recording stopped 14:14:36 Procedure ended. 14:14:42 End room use (Document Last) 14:15:40 End room use (Document Last) 14:15:58 End room use (Document Last) Device Usage Item Name Manufacture Quantity Catalog Hospital Part Current Minima l Lot# / Number Charge Number Stock Stock Serial# Code ACIST Acist 1 85359 249533 589581 [id number] 20 Syringe Medical (11672) Systems Inc Medline Medline 1 [id number] 057848 71094 726813 5 Cath Pack ([id number]) Bag Microtek 1 484288 95565 241541 5 Decanter Medical Inc. () ACIST Hand Acist 1 03707 192098 210858 331651 5 Control Medical (48264) Systems Inc ACIST Acist 1 77835 259697 367695 021619 5 Manifold Medical (44702) Systems Inc Tegaderm 4 3M 1 1626W 357166 980582 669376 5 x 4 (1626W) MBrace Advanced 1 140-0250-00 987213 16042 504517 5 Wrist Vascular Support Dynamics ([id number]) EMERALD Cardinal 1 502-455 547096 946985 117399 5 Guide Wire Health (502-455) SHEATH 6FR Cardinal 1 4425081 306410 5414384 944481 5 RAIN Health (7023447) DIAGNOSTIC Terumo 1 40-5013 092682 546597 045929 5 [place] 110cm 5 Fr catheter (288744) ZEPHYR Cardinal 1 364622 685938 6180711 060718 5 LARGE TR Health BAND (049532) Signature Audit [place] Stage Time Signature Unsigned Intra-Procedure 12/01/2019 Celia Umaña 2:15:41 PM RT(R) Intra-Procedure 12/01/2019 Jia Rivas RN 2:15:58 PM Intra-Procedure 12/01/2019 Celia Umaña 2:17:38 PM RT(R); Jorje Hummel MD Signatures Monitor : Celia Umaña RT Signature : Date : Time : Nurse : Jia Rivas RN Signature : Date : Time : Performing Physician : Signature : Jorje Hummel MD Date : Time : [facility] [address] [place] [address]
[2019-12-01] MEDS ORDERED: XARELTO20 MG PO (12:30)
[2019-12-01] MEDS ORDERED: LIPITOR10 MG PO (12:31)
[2019-12-01 12:41] VITALS: BP 127/80; Ht 177.8 cm; Wt 112.5 kg
[2019-12-01 13:03] LABS: BASOPHILS 0.2 % (0-2); EOSINOPHILS 1.4 % (0-7); HEMATOCRIT 52.2 % (42.0-54.0); IMMATURE GRANULOCYTES 0.3 % (0-5); LYMPHOCYTES 23.3 % (15-50); MCH 30.6 pg (26.0-34.0); MCHC 34.5 g/dL (31.0-37.0); MCV 88.8 fL (80.0-100.0); MEAN PLATELET VOLUME 10.1 fL (7.4-10.4); MONOCYTES 6.3 % (2-11); NEUTROPHILS 68.5 % (40-80); PLATELET COUNT 173 10x3/uL (130-400); RBC 5.88 10x6/uL (4.20-6.10); RDW 13.5 % (11.5-14.5); WBC 12.7 10x3/uL (4.8-10.8)
[2019-12-01 13:19] LABS: ALT (SGPT) 50 U/L (10-68); CALC OSMOLALITY 279 mosm/kg (275-300); CALCIUM 8.8 mg/dL (8.5-10.1); CARBON DIOXIDE 26.4 mmol/L (21.0-32.0); CHLORIDE - SERUM 105 mmol/L (98-107); CHOL - HDL RATIO 3.2 ratio (2.3-4.9); CHOLESTEROL, TOTAL 139 mg/dL (0-200); CREATININE - SERUM 0.9 mg/dL (0.6-1.3); GLUCOSE 126 mg/dL (74-106); HDL CHOLESTEROL 44 mg/dL (32-96); LDL CHOLESTEROL 74 mg/dL (0-100); LDL-HDL RATIO 1.7 ratio (1.5-3.5); POTASSIUM - SERUM 3.9 mmol/L (3.5-5.1); SODIUM 138 mmol/L (136-145); TRIGLYCERIDE 106 mg/dL (30-200); UREA NITROGEN 18 mg/dL (7-18); eGFR NON AFRICAN AMERICAN > 90 mL/min (90-120)
--- NOTE | 2019-12-01 14:25 | NUR ---
PT ARRIVED BY STRETCHER. PLACED ON MONITORS. ASSESSMENT COMPLETED. VSS AT THIS TIME. CALL LIGHT WITHIN REACH.
--- NOTE | 2019-12-01 14:40 | NUR ---
PT SITTING UP IN BED. DENIES NAUSEA. GIVEN SODA TO DRINK. RIGHT WRIST Z BAND IN PLACE. NO BLEEDING/HEMATOMA NOTED. CALL LIGHT WITHIN REACH.
--- NOTE | 2019-12-01 15:10 | NUR ---
RIGHT WRIST Z BAND IN PLACE. NO BLEEDING/HEMATOMA NOTED. CALL LIGHT WITHIN REACH. VSS AT THIS TIME. PT TOLERATING FOOD AND DRINK. DENIES NAUSEA/PAIN AT THIS TIME.
--- NOTE | 2019-12-01 15:30 | NUR ---
2cc OF AIR REMOVED FROM Z BAND. NO BLEEDING/HEMATOMA NOTED. CALL LIGHT WITHIN REACH. VSS AT THIS TIME. FAMILY AT BEDSIDE. NO NEEDS AT THIS TIME.
--- NOTE | 2019-12-01 15:44 | NUR ---
3cc OF AIR REMOVED FROM Z BAND. NO BLEEDING/HEMATOMA NOTED. CALL LIGHT WITHIN REACH. VSS AT THIS TIME.
--- NOTE | 2019-12-01 16:00 | NUR ---
5cc OF AIR REMOVED FROM Z BAND. NO BLEEDING/HEMATOMA NOTED.
--- NOTE | 2019-12-01 16:05 | NUR ---
DR. SINGH AT BEDSIDE. SPOKE WITH PT AND PT'S DAUGHTER. I DISCUSSED DISCHARGE INSTRUCTIONS WITH PT AND PT'S FAMILY. THEY VOICED UNDERSTANDING.
--- NOTE | 2019-12-01 16:10 | NUR ---
Z BAND REMOVED AND DRESSING APPLIED. TOLERATED WELL. NO BLEEDING/HEMATOMA NOTED. PIV D/C'D WITH CATH TIP INTACT. PT INSTRUCTED TO GET UP AND DRESSED AT THIS TIME. CALL LIGHT WITHIN REACH. NO ASSISTANCE NEEDED.
--- NOTE | 2019-12-01 16:25 | NUR ---
RIGHT WRIST DRESSING C/D/I. NO S/S OF HEMATOMA NOTED. PT AMBULATED TO RESTROOM. VOIDED WITHOUT DIFFICULTY. STEADY GAIT NOTED. PT TAKEN DOWN TO VEHICLE BY WHEELCHAIR. NO S/S OF DISTRESS NOTED. ALL BELONGINGS AND PAPERWORK IN HAND.
--- NOTE | 2019-12-02 08:18 | OP ---
PATIENT NAME: GABRIELA AGUIRRE MEDICAL RECORD: [id number] :64 LOCATION:D.CAT ADMISSION DATE: SURGEON: DORINDA SINGH MD DATE OF OPERATION: 12/01/2019 PROCEDURE: Left heart catheterization, selective coronary angiography, right radial approach. CATHETERS: Radial sheath, [place] catheter. The procedure was well tolerated. The patient returned to hooper. Sheath removed. TR band was placed. FINDINGS: Left ventriculography in 30-degree SINGLETARY view: Normal wall motion. Normal systolic function. CORONARY ANATOMY: LEFT MAIN: Free of disease. LAD: Free of disease in the diagonal system. CIRCUMFLEX: Free of disease in the marginal system. RIGHT CORONARY ARTERY: Dominant artery, gives rise to PDA, free of disease. IMPRESSION: Normal left ventricular systolic function. Normal coronary anatomy. TRANSINT:[id number] Voice Confirmation ID: [id number] DOCUMENT ID: [id number] DORINDA SINGH MD at 0818 CC: [id number] DICTATION DATE: 12/01/19 1419 ATTIC BLOWER: 12/02/19 0005 [facility] 12/01/19 [id number] [place] [address]
== END 2019-12-01 16:25 | disposition home or self-care (01) ==
LOC: D.CATH 12:09
PROVIDERS: ATTEND Internal Medicine Interventional Cardiology
DX: I20.9 Angina pectoris, unspecified (principal); I10 Essential (primary) hypertension; E11.9 Type 2 diabetes mellitus without complications; Z79.84 Long term (current) use of oral hypoglycemic drugs; E78.5 Hyperlipidemia, unspecified